=== PATIENT | female | born 1985 | race Caucasian/White ===

== ENCOUNTER 2018-10-17 00:13 | Emergency (ER) | payer SELFPAY ==
[~2018-10-17] VITALS: Wt 77.2 kg
[2018-10-17] MEDS ORDERED: ACETAMINOPHEN 500 MG TAB PO STA (02:17)
[2018-10-17] MEDS ORDERED: IBUP-1542 PO (02:21)
[2018-10-17] MEDS ORDERED: DICL100G37 TOP (02:21)
[2018-10-17] MEDS ORDERED: CYCL10TA7 PO (02:21)
[2018-10-17] MEDS ORDERED: ACET500C5 PO (02:21)
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
[2018-10-17 03:52] VITALS: BP 126/80; PULSE 60; RESP 16
== END 2018-10-17 03:56 | disposition home or self-care (01) ==
LOC: FTE 00:13
DX: S16.1XXA Strain of muscle, fascia and tendon at neck level, initial encounter (principal); V49.50XA Passenger injured in collision with unspecified motor vehicles in traffic accident, initial encounter
CPT/HCPCS: 99283